=== PATIENT | male | born 1985 | race Caucasian/White ===

== ENCOUNTER 2019-02-04 10:53 | Emergency (ER) | payer MEDICAID ==
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
--- NOTE | 2019-02-04 12:02 | CR ---
CLINICAL HISTORY: 33-year-old male with left elbow pain. INTERPRETATION: Three views left elbow reveal some reactive sclerosis and early marginal spur formation humeral-olecranon reticulation. Small joint effusion (tiny posterior fat pads). Homogeneous normal bone density without sign of pathologic skeletal lesion, left elbow fracture, or dislocation. No foreign bodies. CONCLUSION: Arthritis.
== END 2019-02-04 12:19 | disposition home or self-care (01) ==
LOC: DL.ED 10:53
DX: S46.912A Strain of unspecified muscle, fascia and tendon at shoulder and upper arm level, left arm, initial encounter (principal); X50.0XXA Overexertion from strenuous movement or load, initial encounter
CPT/HCPCS: 73080-LT; 99283-25

== ENCOUNTER 2020-02-06 07:23 | Emergency (ER) | payer MEDICAID ==
--- NOTE | 2020-02-06 08:15 | CR ---
PROCEDURE INFORMATION: Exam: XR Right Elbow Exam date and time: 02/06/2020 7:40 AM Age: 34 years old Clinical indication: Injury or trauma; Fall; Initial encounter; Blunt trauma (contusions or hematomas; Elbow; Right; Additional info: Pain, fell last night TECHNIQUE: Imaging protocol: XR Right elbow. Views: 3 or more views. COMPARISON: No relevant prior studies available. FINDINGS: Bones/joints: There is no evidence of acute fracture or dislocation. No significant narrowing of the joint spaces. No lytic or blastic lesions. Soft tissues: No radiopaque foreign body within the soft tissues. IMPRESSION: No acute findings appreciated.
--- NOTE | 2020-02-06 08:29 | EDM.PDOC ---
ED HPI GENERAL MEDICAL PROBLEM - General Chief Complaint: Upper Extremity Injury/Pain Stated Complaint: INJURED ARM Time Seen by Provider: 02/06/20 07:40 Source of Information: Reports: Patient History Limitations: Reports: No Limitations - History of Present Illness INITIAL COMMENTS - FREE TEXT/NARRATIVE: ED with c/o right elbow pain. Fell last night landing forward, some discomfort last brandt, worse this am. Has sling to right arm. Denied other injury with fall. No loss of consciousness. Right Elbow Pain Score (Numeric/FACES): 0 - Related Data Allergies Allergy/AdvReac Type Severity Reaction Status Date / Time No Known Allergies Allergy Verified 02/06/20 07:39 Home Meds: Home Meds . [No Known Home Meds] 02/04/19 [History] Past Medical History - Past Health History Medical/Surgical History: Denies Medical/Surgical History Social & Family History - Tobacco Use Smoking Status *Q: Never Smoker - Recreational Drug Use Recreational Drug Use: No Review of Systems - Review of Systems Review Of Systems: Comprehensive ROS is negative, except as noted in HPI. ED EXAM, GENERAL - Physical Exam Exam: See Below Exam Limited By: No Limitations General Appearance: Alert, Anxious, Obese Eye Exam: Bilateral Eye: EOMI, Nystagmus Ears: Normal External Exam, Hearing Grossly Normal Nose: Normal Inspection Throat/Mouth: Normal Inspection Head: Atraumatic, Normocephalic Neck: Normal Inspection Respiratory/Chest: No Respiratory Distress, Normal Breath Sounds Cardiovascular: Normal Peripheral Pulses, Regular Rate, Rhythm GI/Abdominal: Soft Extremities: Limited Range of Motion (right elbow, increased pain with minimal extension, mild swelling , no deformity) Neurological: Alert, Oriented Skin Exam: Warm, Dry, Intact, Normal Color Course - Vital Signs Last Recorded V/S: Last Vital Signs Temp 98 F 02/06/20 07:34 Pulse 94 02/06/20 07:34 Resp 14 02/06/20 07:34 BP 193/103 H 02/06/20 07:34 Pulse Ox 97 02/06/20 07:34 Departure - Departure Time of Disposition: 08:20 Disposition: Home, Self-Care 01 Condition: Good Clinical Impression: Strain of elbow, right Qualifiers: Encounter type: initial encounter Qualified Code(s): S46.911A - Strain of unspecified muscle, fascia and tendon at shoulder and upper arm level, right arm, initial encounter - Discharge Information *PRESCRIPTION DRUG MONITORING PROGRAM REVIEWED*: No *COPY OF PRESCRIPTION DRUG MONITORING REPORT IN PATIENT KELLEE: No Instructions: Muscle Strain, [id number] Additional Instructions: alternate tylenol 650mg and ibuprofen 600mg every 4 hours as needed for discomfort ice to elbow area clinic next week if continued symptoms gradual motion of elbow as tolerated sling this weekend for comfort Sepsis Event Note (ED) - Evaluation Sepsis Screening Result: No Definite Risk - Focused Exam Vital Signs: Vital Signs Temp Pulse Resp BP Pulse Ox 02/06/20 07:34 98 F 94 14 193/103 H 97
== END 2020-02-06 08:29 | disposition home or self-care (01) ==
LOC: DL.ED 07:23
DX: S46.911A Strain of unspecified muscle, fascia and tendon at shoulder and upper arm level, right arm, initial encounter (principal); W01.0XXA Fall on same level from slipping, tripping and stumbling without subsequent striking against object, initial encounter
CPT/HCPCS: 73080-RT; 99283

== ENCOUNTER 2020-03-23 22:59 | Emergency (ER) | payer MEDICAID ==
[2020-03-23] MEDS ORDERED: Ketorolac 30 MG/ML SDV IVPUSH ONE (23:26)
[2020-03-23] MEDS ORDERED: Sodium Chloride 0.9% 1,000 ML IV ONE (23:26)
--- NOTE | 2020-03-23 23:31 | EDM.PDOC ---
ED HPI GENERAL MEDICAL PROBLEM - General Chief Complaint: Flank Pain Stated Complaint: [facility] Time Seen by Provider: 03/23/20 23:15 Source of Information: Reports: Patient, EMS, EMS Notes Reviewed, RN, RN Notes Reviewed History Limitations: Reports: No Limitations - History of Present Illness INITIAL COMMENTS - FREE TEXT/NARRATIVE: Patient presents to ER per [facility] ambulance service with complaint of left lower quadrant/left flank pain. Patient states he began having left groin pain suddenly this evening just prior to calling EMS. He states it began in the left groin area traveled up into the left lower quadrant of the abdomen. Patient states he did attempt to urinate and had a lot of tingling and pain with that. Patient states only minimal nausea with the pain. Patient states he has never had pain like this before. States the pain is intermittent, comes and goes. Patient denies having kidney stones in the past, denies any medical history that he takes medications for on a daily basis. Patient states he does take Tylenol and ibuprofen for joint pain. Onset: Today, Sudden Duration: Waxing/Waning Location: Reports: Abdomen, Back Quality: Reports: Sharp, Stabbing Severity: Moderate Improves with: Reports: None Worsens with: Reports: None Associated Symptoms: Reports: No Other Symptoms Left Middle Flank Pain Score (Numeric/FACES): 6 - Related Data Allergies Allergy/AdvReac Type Severity Reaction Status Date / Time No Known Allergies Allergy Verified 02/06/20 07:39 Home Meds: Home Meds . [No Known Home Meds] 02/04/19 [History] Past Medical History - Past Health History Medical/Surgical History: Denies Medical/Surgical History Social & Family History - Family History Family Medical History: Noncontributory - Tobacco Use Smoking Status *Q: Unknown Ever Smoked - Caffeine Use Caffeine Use: Reports: Soda - Recreational Drug Use Recreational Drug Use: Yes Drug Use in Last 12 Months: Yes Recreational Drug Type: Reports: Marijuana/Hashish Recreational Drug Use Frequency: Not Used In Over 1 Month ED ROS GENERAL - Review of Systems Review Of Systems: Comprehensive ROS is negative, except as noted in HPI. ED EXAM, RENAL/ - Physical Exam Exam: See Below Exam Limited By: No Limitations General Appearance: Alert, WD/WN, Mild Distress Eye Exam: Bilateral Eye: EOMI, Normal Inspection Ears: Normal External Exam, Hearing Grossly Normal Nose: Normal Inspection Throat/Mouth: Normal Inspection, Normal Voice, No Airway Compromise Head: Atraumatic, Normocephalic Neck: Normal Inspection, Supple, Non-Tender, Full Range of Motion Respiratory/Chest: No Respiratory Distress, Lungs Clear, Normal Breath Sounds, No Accessory Muscle Use, Chest Non-Tender GI/Abdominal: Normal Bowel Sounds, Soft, Non-Tender, No Organomegaly, No Distention, No Abnormal Bruit, No Mass Rectal (Males) Exam: Deferred Back Exam: Normal Inspection, Full Range of Motion, CVA Tenderness (L) (minimal) Extremities: Normal Inspection, Normal Range of Motion, Non-Tender, Normal Capillary Refill, No Pedal Edema Neurological: Alert, Oriented, CN II-XII Intact, Normal Cognition, Normal Gait, Normal Reflexes, No Motor/Sensory Deficits Psychiatric: Normal Affect, Normal Mood, Anxious Skin Exam: Warm, Dry, Intact, Normal Color, No Rash Lymphatic: No Adenopathy Course - Vital Signs Last Recorded V/S: Last Vital Signs Temp 97.9 F 03/23/20 23:13 Pulse 86 03/23/20 23:13 Resp 20 03/23/20 23:13 BP 136/119 H 03/23/20 23:13 Pulse Ox 99 03/23/20 23:13 - Orders/Labs/Meds Orders: Active Orders 24 hr Category Date Time Status UA RFX ABY AND CULT IF INDIC [URIN] Stat Lab 03/23/20 23:04 Ordered Labs: Laboratory Tests 03/23/20 03/23/20 Range/Units 23:15 23:15 WBC 10.1 H (5.0-10.0) 10^3/uL RBC 5.19 (4.6-6.2) 10^6/uL Hgb 15.1 (14.0-18.0) g/dL Hct 43.2 (40.0-54.0) % MCV 83.2 (80-100) fL MCH 29.1 (27.0-34.0) pg MCHC 35.0 (33.0-35.0) g/dL Plt Count 131 L (150-450) 10^3/uL Neut % (Auto) 70.6 (42.2-75.2) % Lymph % (Auto) 21.8 (20.5-50.1) % [place] % (Auto) 5.9 (2-8) % Eos % (Auto) 1.2 (1.0-3.0) % Baso % (Auto) 0.5 (0.0-1.0) % Sodium 139 (136-145) mmol/L Potassium 3.1 L (3.5-5.1) mmol/L Chloride 103 (98-107) mmol/L Carbon Dioxide 25 (21-32) mmol/L Anion Gap 14.1 H (7-13) mEq/L BUN 13 (7-18) mg/dL Creatinine 1.25 (0.70-1.30) mg/dL Est Cr Clr Drug Dosing 92.26 mL/min Estimated GFR (MDRD) > 60 BUN/Creatinine Ratio 10.4 (No establ ref range) Glucose 173 H (74-99) mg/dL Calcium 9.1 (8.5-10.1) mg/dL Total Bilirubin 0.9 (0.2-1.0) mg/dL AST 15 (15-37) U/L ALT 29 (16-63) U/L Alkaline Phosphatase 89 (46-116) U/L Total Protein 7.6 (6.4-8.2) g/dL Albumin 4.0 (3.4-5.0) g/dL Globulin 3.6 Albumin/Globulin Ratio 1.1 Meds: Medications Discontinued Medications Generic Name Dose Route Start Last Admin Trade Name Freq PRN Reason Stop Dose Admin Sodium Chloride 1,000 mls @ 999 mls/hr 03/23/20 23:26 03/23/20 23:36 Normal Saline IV 03/24/20 00:26 999 mls/hr .BOLUS ONE Administration Ketorolac Tromethamine 30 mg 03/23/20 23:26 03/23/20 23:37 Toradol IVPUSH 03/23/20 23:27 Not Given ONETIME ONE Potassium Chloride 40 meq 03/23/20 23:48 03/24/20 00:23 Klor-Con 10 PO 03/23/20 23:49 40 meq ONETIME ONE Administration Tamsulosin HCl 0.4 mg 03/24/20 00:30 03/24/20 00:39 Flomax PO 03/24/20 00:31 0.4 mg ONETIME ONE Administration - Radiology Interpretation Free Text/Narrative:: CT Abdomen/Pelvis without contrast: PROCEDURE INFORMATION: Exam: CT Abdomen And Pelvis Without Contrast Exam date and time: 03/24/2020 12:12 AM Age: 34 years old Clinical indication: Abdominal pain; Additional info: Left groin pain, llq pain, left flank pain TECHNIQUE: Imaging protocol: Computed tomography of the abdomen and pelvis without contrast. Radiation optimization: All CT scans at this facility use at least one of these dose optimization techniques: automated exposure control; mA and/or kV adjustment per patient size (includes targeted exams where dose is matched to clinical indication); or iterative reconstruction. COMPARISON: No relevant prior studies available. FINDINGS: Liver: Normal. No mass. Gallbladder and bile ducts: Cholelithiasis. Pancreas: Normal. No ductal dilation. Spleen: Normal. No splenomegaly. Adrenals: Normal. No mass. Kidneys and ureters: 3 mm nonobstructing stone mid aspect left kidney 2 mm stone in the base of the bladder with mild hydronephrosis of the left kidney as well as left ureter suggestive of a recently passed left ureteral stone. Stomach and bowel: Unremarkable. No obstruction. No mucosal thickening. Appendix: No evidence of appendicitis. Intraperitoneal space: Unremarkable. No free air. No significant fluid collection. Vasculature: Unremarkable. No abdominal aortic aneurysm. Lymph nodes: Unremarkable. No enlarged lymph nodes. Bladder: Unremarkable as visualized. Reproductive: Unremarkable as visualized. Bones/joints: Unremarkable. No acute fracture. Soft tissues: Unremarkable. IMPRESSION: 1. Cholelithiasis. 2. 3 mm nonobstructing stone mid aspect left kidney 3. 2 mm stone in the base of the bladder with mild hydronephrosis of the left kidney as well as left ureter suggestive of a recently passed left ureteral stone. Thank you for allowing us to participate in the care of your patient. Dictated and Authenticated by: Zacarias Vargas MD 03/24/2020 12:24 AM Central Time ([place] & [place]) See rad report Departure - Departure Time of Disposition: 00:39 Disposition: Home, Self-Care 01 Condition: Fair Clinical Impression: Kidney stones, Hypokalemia - Discharge Information *PRESCRIPTION DRUG MONITORING PROGRAM REVIEWED*: No *COPY OF PRESCRIPTION DRUG MONITORING REPORT IN PATIENT KELLEE: No Instructions: Renal Colic, [id number], Hypokalemia, Kidney Stones, [id number], Potassium Content of Foods, Dietary Guidelines to Help Prevent Kidney Stones Forms: ED Department Discharge Additional Instructions: May use Tylenol and/or Ibuprofen as directed for pain Drink plenty of water Follow up with your primary care facility Sepsis Event Note (ED) - Evaluation Sepsis Screening Result: No Definite Risk - Focused Exam Vital Signs: Vital Signs Temp Pulse Resp BP Pulse Ox 03/23/20 23:13 97.9 F 86 20 136/119 H 99 - My Orders Last 24 Hours: My Active Orders 03/23/20 23:04 UA RFX ABY AND CULT IF INDIC [URIN] Stat - Assessment/Plan Last 24 Hours: My Active Orders 03/23/20 23:04 UA RFX ABY AND CULT IF INDIC [URIN] Stat
[2020-03-23 23:44] LABS: ANION GAP 14.1 mEq/L (7-13); CHLORIDE,CL 103 mmol/L (98-107); SODIUM,NA 139 mmol/L (136-145)
[2020-03-23] MEDS ORDERED: Potassium Chloride 10 MEQ Tab.ER PO ONE (23:48)
--- NOTE | 2020-03-24 00:25 | CT ---
PROCEDURE INFORMATION: Exam: CT Abdomen And Pelvis Without Contrast Exam date and time: 03/24/2020 12:12 AM Age: 34 years old Clinical indication: Abdominal pain; Additional info: Left groin pain, llq pain, left flank pain TECHNIQUE: Imaging protocol: Computed tomography of the abdomen and pelvis without contrast. Radiation optimization: All CT scans at this facility use at least one of these dose optimization techniques: automated exposure control; mA and/or kV adjustment per patient size (includes targeted exams where dose is matched to clinical indication); or iterative reconstruction. COMPARISON: No relevant prior studies available. FINDINGS: Liver: Normal. No mass. Gallbladder and bile ducts: Cholelithiasis. Pancreas: Normal. No ductal dilation. Spleen: Normal. No splenomegaly. Adrenals: Normal. No mass. Kidneys and ureters: 3 mm nonobstructing stone mid aspect left kidney 2 mm stone in the base of the bladder with mild hydronephrosis of the left kidney as well as left ureter suggestive of a recently passed left ureteral stone. Stomach and bowel: Unremarkable. No obstruction. No mucosal thickening. Appendix: No evidence of appendicitis. Intraperitoneal space: Unremarkable. No free air. No significant fluid collection. Vasculature: Unremarkable. No abdominal aortic aneurysm. Lymph nodes: Unremarkable. No enlarged lymph nodes. Bladder: Unremarkable as visualized. Reproductive: Unremarkable as visualized. Bones/joints: Unremarkable. No acute fracture. Soft tissues: Unremarkable. IMPRESSION: 1. Cholelithiasis. 2. 3 mm nonobstructing stone mid aspect left kidney 3. 2 mm stone in the base of the bladder with mild hydronephrosis of the left kidney as well as left ureter suggestive of a recently passed left ureteral stone.
[2020-03-24] MEDS ORDERED: Tamsulosin 0.4 MG Cap.ER PO ONE (00:30)
== END 2020-03-24 01:07 | disposition home or self-care (01) ==
LOC: DL.ED 22:59
DX: N13.2 Hydronephrosis with renal and ureteral calculous obstruction (principal); E87.6 Hypokalemia
CPT/HCPCS: 36415; 74176; 80053; 85025; 99284; A9270; J7030

== ENCOUNTER 2023-02-25 09:50 | Emergency (ER) | payer MEDICAID ==
[2023-02-25] MEDS: Metoprolol Tartrate 5 MG/5 ML SDV IVPUSH ONE (11:06)
== END 2023-02-25 11:55 | disposition home or self-care (01) ==
LOC: DL.ED 09:50
DX: M12.9 Arthropathy, unspecified (principal); M25.461 Effusion, right knee; I10 Essential (primary) hypertension; E66.01 Morbid (severe) obesity due to excess calories; Z68.42 Body mass index [BMI] 45.0-49.9, adult; Z87.891 Personal history of nicotine dependence
CPT/HCPCS: 73562; 96374; 99283; 99284; J3490

== ENCOUNTER 2023-06-03 13:23 | Emergency (ER) | payer MEDICAID ==
[2023-06-03] MEDS ORDERED: Ibuprofen 800 MG Tab PO ONE (13:32)
== END 2023-06-03 14:46 ==
LOC: DL.ED 13:23
DX: S53.402A Unspecified sprain of left elbow, initial encounter (principal); S46.912A Strain of unspecified muscle, fascia and tendon at shoulder and upper arm level, left arm, initial encounter; X50.0XXA Overexertion from strenuous movement or load, initial encounter
CPT/HCPCS: 73080; 99282; 99283; A9270

== ENCOUNTER 2024-12-08 17:42 | Emergency (ER) | payer MEDICAID ==
[2024-12-08] MEDS: traMADol 50 MG Tab PO ONE (18:35)
== END 2024-12-08 18:45 | disposition home or self-care (01) ==
LOC: DL.ED 17:42
DX: S09.93XA Unspecified injury of face, initial encounter (principal); I10 Essential (primary) hypertension; X58.XXXA Exposure to other specified factors, initial encounter
CPT/HCPCS: 99282; 99283; A9270